=== PATIENT | female | born 1955 | race African-American/Black ===

== ENCOUNTER → 2021-02-27 | Outpatient (CLI) | payer OTHER ==
[2021-02-27 11:41] LABS: BASO % 1 % (0-3); EOS # 0.1 x10^3/uL (0.0-0.7); EOS % 3 % (0-3); HEMATOCRIT 35.5 % (36.0-47.0); HEMOGLOBIN 11.5 g/dL (12.0-15.5); LYMPH # 1.2 x10^3/uL (1.0-4.8); LYMPH % 42 % (24-48); MEAN CORPUSCULAR HEMOGLOBIN 28 pg (25-35); MEAN CORPUSCULAR HGB CONC 32 g/dL (31-37); MEAN CORPUSCULAR VOLUME 87 fL (79-100); MONO # 0.2 x10^3/uL (0.0-1.1); MONO % 7 % (0-9); NEUT # 1.4 x10^3/uL (1.8-7.7); NEUT % 48 % (31-73); PLATELET COUNT 146 x10^3/uL (140-400)
== END ==
LOC: ONCLAB 11:03
PROVIDERS: ATTEND Internal Medicine Hematology & Oncology
DX: D64.9 Anemia, unspecified (principal)
CPT/HCPCS: 36415; 82525; 82607; 82728; 82746; 83540; 83550; 85025; 85045

== ENCOUNTER 2021-04-28 06:03 | Day surgery (SDC) | payer OTHER ==
[~2021-04-28] VITALS: Ht 167.6 cm; Wt 90.0 kg
[~2021-04-28 06:03] MED LIST: HYDROmorphone 2 MG/ML VIAL IVP PRN; IV RINGERS,LACTATED 1000ML 1,000 ML IV SCH; MORPHINE SULFATE 2 MG/ML INJ. IVP PRN; PROCHLORPERAZINE 10 MG/2 ML VIAL. IVP PRN; fentaNYL PF VIAL 100 MCG/2 ML VIAL IVP PRN
[2021-04-28 06:32] VITALS: BP 186/100
[2021-04-28] MEDS ORDERED: MULT-245 PO (06:39)
[2021-04-28] MEDS ORDERED: TUME1CAP PO (06:39)
[2021-04-28] MEDS ORDERED: CYAN25008 PO (06:39)
[2021-04-28] MEDS ORDERED: ASCO100019 PO (06:39)
[2021-04-28] MEDS ORDERED: ROCURONIUM 50 MG/5 ML VIAL. ONE (07:01)
[2021-04-28] MEDS ORDERED: LIDOCAINE 2% PF 5 ML VIAL. ONE (07:01)
[2021-04-28] MEDS ORDERED: PROPOFOL 10 MG/ML (20ML) VIAL. IV ONE (07:01)
[2021-04-28] MEDS ORDERED: fentaNYL PF VIAL 100 MCG/2 ML VIAL ONE (07:02)
[2021-04-28] MEDS ORDERED: MIDAZOLAM HCL/PF 2 MG/2 ML VIAL. ONE (07:02)
[2021-04-28] MEDS ORDERED: SUCCINYLCHOLINE 200 MG/10 ML VIAL. ONE (07:03)
[2021-04-28] MEDS ORDERED: BUPIVACAINE-EPI 0.5%-1:200000 MPF 30 ML VIAL. ONE (07:06)
[2021-04-28] MEDS ORDERED: LIDOCAINE 1% PF 30 ML VIAL. ONE (07:06)
[2021-04-28] MEDS ORDERED: PHENYLEPHRINE in 0.9% NACL PF 1 MG/10 ML SYRINGE. IV ONE (08:08)
[2021-04-28] MEDS ORDERED: BUPIVACAINE-EPI 0.5%-1:200000 MPF 30 ML VIAL. INJ ONE (08:28)
--- NOTE | 2021-04-28 08:40 | PDOC4 ---
Operative Note Operative Note Operative Note: Preoperative Diagnosis: Left upper arm mass Postoperative Diagnosis: Same Procedure: Excision of left upper arm mass, 7 X 5 cm, subcutaneous, no margins Surgeon: Al Anesthesia: General EBL: 5 mL Specimen: Left upper arm mass to pathology, 7 X 5 cm Drains: None Complications: None Indication: The patient is a 65-year-old female who was referred with a mass along the posterior aspect of her left upper arm. She requests excision. The risks of surgery were discussed which include bleeding, infection, recurrence, pain, anesthetic risk, potential need for additional surgery procedure. She understands and would like to proceed. Description: The patient was taken to the operating room and placed supine on the operating table. General anesthesia was performed. She was then placed in lateral position with her left side up. The posterior left upper arm was prepped with ChloraPrep and draped in a standard surgical manner. An incision was made directly overlying the mass. Cautery dissection was carried down into the subcutaneous tissues. The mass was identified and consisted of lobulated adipose tissue consistent with a lipoma. The mass was mobilized from the s urrounding tissues with cautery. The mass was fully excised and measured 7 x 5 cm. No additional margins were excised. The mass was sent to pathology for evaluation. Hemostasis was achieved with cautery. The subcutaneous tissue was approximated with 3-0 Vicryl. The skin was closed with 4-0 Monocryl. Steri- Strips and a dressing were applied. The patient tolerated the procedure well and was sent to the recovery room in stable condition. At the end of the case all counts were correct. BUSHRA ROA MD Apr 28, 2021 08:40
[2021-04-28] MEDS ORDERED: HYDR-2759 PO (08:42)
--- NOTE | 2021-04-28 08:44 | DISCH ---
DISCHARGE INSTRUCTIONS Condition on Discharge Condition on Discharge: Stable Activity After Discharge Activity Instructions for Disc: Resume previous activity Driving Instructions after Dis: Other, see below (no driving while taking pain pills) Diet after Discharge Diet after Discharge: Regular Wound Incision Care Wound/Incision Care: Other, see below (keep dressing clean and dry X 72 hours, may then remove and shower) Follow-Up Follow up with: Dr Roa in office in 2 weeks, call for appointment [phone] BUSHRA ROA MD Apr 28, 2021 08:44
[2021-04-28] MEDS ORDERED: HYDROcodone/APAP 5/325MG 1 TAB TABLET PO ONE (09:15)
[2021-04-28 09:26] VITALS: BP 122/68
--- NOTE | 2021-04-29 16:17 | PATHOLOGY ---
[facility] Accession Number: [id number] . 01 Material submitted: . shoulder - L SHOULDER MASS. Modifiers: left . 02 Diagnosis: Fibroadipose tissue, left shoulder mass excision: - Lipoma. (JPM:mary; 04/29/2021) S 04/29/2021 1133 Local . 02 Comment: There is no evidence of malignancy. (JPM:mary; 04/29/2021) . 02 Electronically signed: . Jorge Mccrary MD, Pathologist NPI- [id number] . 01 Gross description: . Fixative: Formalin Labeled: Left shoulder mass Specimen received: Intact segment of bright yellow lobulated tissue Dimensions: 5.3 x 4.5 x 3.0 cm External surface: Bright yellow, shaggy to smooth-roughened Cut surface: Bright yellow and focally hemorrhagic . [employer] Technician sections are submitted in A1 to A7. ([facility]; 04/28/2021) [facility] 04/28/2021 1615 Local . 02 Pathologist provided ICD-10: D17.22 . 02 CPT . 466410 Specimen Comment: A courtesy copy of this report has been sent to [phone], [phone] Specimen Comment: [id number] Specimen Comment: Report sent to / DR CHICAS Performed at: 01 [facility] [address], [place] [id number] MD Geronimo Stanley MD Phone: [phone] Performed at: 02 [facility] [address] [place], [place] [id number] MD Jorge Mccrary MD Phone: [phone]
== END 2021-04-28 10:00 | disposition home or self-care (01) ==
LOC: SURG 06:03
PROVIDERS: ATTEND Surgery
DX: D17.22 Benign lipomatous neoplasm of skin and subcutaneous tissue of left arm (principal); M81.0 Age-related osteoporosis without current pathological fracture; Z79.899 Other long term (current) drug therapy; Z98.890 Other specified postprocedural states
CPT/HCPCS: 24071; J0330; J0690; J2250; J2370; J2704; J3010; A4930; J3490